=== PATIENT | male | born 1945 | race Caucasian/White ===

== ENCOUNTER 2016-07-17 13:30 | Emergency (ER) | payer MEDICARE, OTHER ==
[2016-07-17 14:41] VITALS: BP 131/63
--- NOTE | 2016-07-17 14:48 | UC ---
Respiratory Complaint HPI - HPI Summary HPI Summary: complaint of cough that started approx 14 days ago had cold sore at the beginning of illness which resolved with acyclovir productive cough with thick brown sputum for the last 8 days recently having more wheezing slight short of breath with exertion complaint of left back pain that started on 07/20- describes as aching shooting pain with movement resting resolves the pain, pain is worse with coughing able to use cpap without difficulty denies sinus pressure , ear pain , headaches denies fever and chills using albuterol inhaler QHS with some relief denies chest pain, dizziness,diaphoresis, nausea, edema - History of Current Complaint Chief Complaint: UCRespiratory Stated Complaint: COUGH,LOW BACK PAIN Time Seen by Provider: 07/17/16 14:42 Hx Obtained From: Patient - Allergies/Home Medications Allergies/Adverse Reactions: Allergies Allergy/AdvReac Type Severity Reaction Status Date / Time No Known Allergies Allergy Verified 07/17/16 14:34 Home Medications: Home Medications Chlorpheniramine Maleate [Chlor-Trimeton] 4 mg PO 07/17/16 [History] PMH/Surg Hx/FS Hx/Imm Hx Previously Healthy: No - agent orange exposure Endocrine History Of: Reports: Diabetes Denies: Thyroid Disease Cardiovascular History Of: Reports: Cardiac Disorders - BYPASS, CARDIAC ABLASION , AORTIC VALVE DEFIBRALATOR/PACER, Hypertension, Pacemaker/ICD - 2012 Respiratory History Of: Reports: Asthma Denies: COPD GI/ History Of: Denies: Ulcer - Surgical History Surgical History: Yes Surgery Procedure, Year, and Place: left knee surgery x2. Quadruple Bypass Aortic Valve Replacement Ablation, 2012, [facility]. Pacemaker/Difibrillator , 2010, [facility]. Deviated Septum Repair, 1987, [facility]. Tonsillectomy as a child - Family History Known Family History: Positive: Cardiac Disease, Hypertension, Diabetes - Social History Occupation: Retired Lives: With Family Alcohol Use: Weekly Alcohol Amount: 4-5 beers a week Substance Use Type: None Smoking Status (MU): Former Smoker Type: Cigarettes Amount Used/How Often: 1 PPD Length of Time of Smoking/Using Tobacco: 36 Years Have You Smoked in the Last Year: No When Did the Patient Quit Smoking/Using Tobacco: ~2006 - Immunization History Most Recent Influenza Vaccination: fall 2015 Most Recent Tetanus Shot: 3 years ago Most Recent Pneumonia Vaccination: December 2013 Review of Systems Constitutional: Negative Skin: Negative Eyes: Negative ENT: Negative Respiratory: Cough Cardiovascular: Negative Gastrointestinal: Negative Genitourinary: Negative Motor: Negative Neurovascular: Negative Musculoskeletal: Negative Neurological: Negative Psychological: Negative All Other Systems Reviewed And Are Negative: Yes Physical Exam Triage Information Reviewed: Yes Appearance: No Pain Distress, Well-Nourished Vital Signs: Initial Vital Signs Temp 98.5 F 07/17/16 14:34 Pulse 75 07/17/16 14:34 Resp 18 07/17/16 14:34 BP 131/63 07/17/16 14:34 Pulse Ox 97 07/17/16 14:34 Vital Signs Reviewed: Yes Eyes: Positive: Conjunctiva Clear ENT: Positive: Pharynx normal, TMs normal. Negative: Nasal congestion, Nasal drainage Neck: Positive: No Lymphadenopathy Respiratory: Positive: Decreased breath sounds - in both bases, Wheezing - throughout all [place] Cardiovascular: Positive: RRR, Pulses Normal, Brisk Capillary Refill Abdomen Description: Positive: Nontender, Soft, Distended Bowel Sounds: Positive: Present Musculoskeletal: Positive: No Edema, Other: - slight paraspinal tenderness in left lumbar area Neurological: Positive: Alert Psychological Exam: Normal Skin Exam: Normal UC Diagnostic Evaluation - Laboratory O2 Sat by Pulse Oximetry: 97 Re-Evaluation - Re-Evaluation First Eval Re-Evaluation Time: 15:23 Change: Improved Comment: less wheezing throughout Respiratory Course/Dx - Course Course Of Treatment: exam completed. will treat for asthma exacerbation d/t wheezing and length of illness. lunsounds improved with duoneb treatment. chest x-ray negative for pneumonia - Differential Dx/Diagnosis Differential Diagnosis/HQI/PQRI: Asthma, CHF, Lower Resp Infection Provider Diagnoses: asthma exacerbation Discharge - Discharge Plan Condition: Stable Disposition: HOME Prescriptions: DOXYcycline CAP(*) [DOXYcycline 100MG CAP(*)] 100 mg PO BID #20 cap predniSONE TAB* [Deltasone TAB*] 50 mg PO DAILY #5 tab Patient Education Materials: Asthma (ED) Referrals: Nino Key MD [Primary Care Provider] - Additional Instructions: Please take antibiotic as directed Use your albuterol inhaler every 4-6 hours when needed for wheezing, shortness of breath or uncontrolled coughing. Increase fluids and rest Take acetaminophen or ibuprofen for fever or pain Please review your discharge instructions. If your symptoms do not improve please call your primary care provider or return to urgent care.
[2016-07-17] MEDS ORDERED: Albuterol/Ipratropium NEB.SOL* Albuterol 2.5 MG/Ipratropium 0.5 MG 3 ML INH ONE (14:55)
--- NOTE | 2016-07-17 15:39 | RAD ---
INDICATION: Cough. COMPARISON: Comparison is made with a prior chest x-ray study from September 06, 2015. TECHNIQUE: Dual-energy PA and lateral views of the chest were obtained. FINDINGS: The patient is status post sternotomy and cardiac valve surgery. There is a dual-chamber transvenous pacemaker present. The heart is mildly enlarged and unchanged from the prior exam. The lungs are clear. No pleural effusion is present. IMPRESSION: POSTSURGICAL CHANGES, NO EVIDENCE FOR ACUTE FINDING.
== END 2016-07-17 15:56 | disposition home or self-care (01) ==
LOC: UCCORT 13:30
DX: J45.901 Unspecified asthma with (acute) exacerbation (principal); M54.5 Low back pain; I25.10 Atherosclerotic heart disease of native coronary artery without angina pectoris; Z95.1 Presence of aortocoronary bypass graft; E11.9 Type 2 diabetes mellitus without complications
CPT/HCPCS: 71020; 99212; A9270-GY; G0463

== ENCOUNTER 2017-04-26 11:29 | Emergency (ER) | payer MEDICARE, OTHER ==
[2017-04-26 13:39] VITALS: BP 139/65
--- NOTE | 2017-04-26 14:21 | UC ---
FLU HPI - HPI Summary HPI Summary: Pt here w/ URI sx x 8 days. Started as rhinorrhea and sneezing and progressed into STAUFFER, general aches, fever, ST, cough. He has been taking acetaminophen daily except for today and no fever. Also using chloriseptic spray for ST daily - this persists. Ears are full and feels he has PND moving into chest. Denies dysphagia, dyspnea, SOB. Has COPD (uses routine inhalers and feels okay today), DM (typicall 110's - 120's today), a. fib (on pradaxa) and h/o cardiac bypass w / bovine valve replacement. Admits he has a few bloody clots every time he blows his nose however this never develops into epistaxis. Home temp is between 68 and 70F and just started using humidification. HAs been drinking water and 7UP as his appetite is low - denies ab pain, N/V/D and still moving bowels/ urinating. Imms are UTD. - History of Current Complaint Chief Complaint: UCGeneralIllness Stated Complaint: SINUSES, ST, COUGH, FEVER Time Seen by Provider: 04/26/17 14:05 Hx Obtained From: Patient Pain Intensity: 4 - Allergy/Home Medications Allergies/Adverse Reactions: Allergies Allergy/AdvReac Type Severity Reaction Status Date / Time No Known Allergies Allergy Verified 04/26/17 13:36 Home Medications: Home Medications Amiodarone TAB* [Cordarone TAB*] 200 mg PO DAILY 04/26/17 [History Confirmed ] Aspirin EC Low Dose* [Ecotrin EC Low Dose 81 MG*] 81 mg PO DAILY 04/26/17 [ History Confirmed 04/26/17] Calcium Carbonate/Vitamin D3 [Calcium 600 + Vit D Tablet] 1 each PO DAILY [History Confirmed 04/26/17] Cyclosporine 0.05% OPHTH (NF) [Restasis 0.05% OPHTH] 1 drop BOTH EYES BID [History Confirmed 04/26/17] Dabigatran CAP(NF) [Pradaxa CAP(NF)] 150 mg PO BID 04/26/17 [History Confirmed 04/26/17] Ferrous Sulfate TAB* 325 mg PO BID 04/26/17 [History Confirmed 04/26/17] Furosemide TAB* [Lasix TAB*] 40 mg PO BID 04/26/17 [History Confirmed 04/26/17] Latanoprost 0.005%* [Xalatan 0.005%*] 1 drop BOTH EYES QPM 04/26/17 [History Confirmed 04/26/17] Losartan TAB* [Cozaar TAB*] 50 mg PO DAILY 04/26/17 [History Confirmed 04/26/17] Magnesium Oxide [Magnesium 400 mg] 1 tab PO DAILY 04/26/17 [History Confirmed ] Mesalamine CAP(NF) [Pentasa(NF)] 1,000 mg PO QID 04/26/17 [History Confirmed ] Metoprolol Tartrate TAB* [Lopressor TAB*] 50 mg PO BID 04/26/17 [History Confirmed 04/26/17] Mometasone 220 MCG MDI * [Asmanex 220 MCG MDI *] 1 puff INH DAILY 04/26/17 [ History Confirmed 04/26/17] Pantoprazole TAB (NF) [Protonix TAB (NF)] 40 mg PO BID 04/26/17 [History Confirmed 04/26/17] Potassium Chlor TAB* [Klor Con ER TAB*] 20 meq PO BID 04/26/17 [History Confirmed 04/26/17] Simvastatin [Zocor 5 MG-] 10 mg PO DAILY 04/26/17 [History Confirmed 04/26/17] glyBURIDE TAB* [Diabeta TAB*] 2.5 mg PO BID 04/26/17 [History Confirmed 04/26/17 ] metFORMIN* [Glucophage 500 MG TAB *] 500 mg PO DAILY 04/26/17 [History Confirmed 04/26/17] PMH/Surg Hx/FS Hx/Imm Hx Previously Healthy: Yes Endocrine History: Diabetes Cardiovascular History: Cardiac Disease, Atrial Fibrillation Respiratory History: COPD - Surgical History Surgical History: Yes Surgery Procedure, Year, and Place: left knee surgery x2. Quadruple Bypass Aortic Valve Replacement Ablation, 2012, [facility]. Pacemaker/Difibrillator , 2010, [facility] Deviated Septum Repair, 1987, [facility]. Tonsillectomy as a child - Family History Known Family History: Positive: Cardiac Disease, Hypertension, Diabetes - Social History Lives: With Family - children and grandchildren Alcohol Use: Occasionally Alcohol Amount: 4-5 beers a week Substance Use Type: None Smoking Status (MU): Former Smoker - not currently Type: Cigarettes Amount Used/How Often: 1 PPD Length of Time of Smoking/Using Tobacco: 36 Years Have You Smoked in the Last Year: No When Did the Patient Quit Smoking/Using Tobacco: ~2006 - Immunization History Most Recent Influenza Vaccination: fall 2015 Most Recent Tetanus Shot: 3 years ago Most Recent Pneumonia Vaccination: December 2013 Review of Systems Constitutional: Fatigue - tired easily but better w/ rest and fluids Skin: Negative Eyes: Negative ENT: Sore Throat, Ear Ache, Nasal Discharge, Sinus Congestion, Sinus Pain/ Tenderness Respiratory: Cough Cardiovascular: Negative Gastrointestinal: Negative Genitourinary: Negative Motor: Negative Neurovascular: Negative Musculoskeletal: Negative Neurological: Headache Psychological: Negative Is Patient Immunocompromised?: Yes - multiple co-morbidities All Other Systems Reviewed And Are Negative: Yes Physical Exam Triage Information Reviewed: Yes Appearance: No Pain Distress, Ill-Appearing - appears mildly fatigued but alert , speaking in full sentences and pleasant, Obese Vital Signs: Initial Vital Signs Temp 98.1 F 04/26/17 13:34 Pulse 71 04/26/17 13:34 Resp 18 04/26/17 13:34 BP 139/65 04/26/17 13:34 Pulse Ox 99 04/26/17 13:34 Vital Signs Reviewed: Yes ENT: Positive: Nasal congestion, Nasal drainage, TMs normal, Sinus tenderness - maxillary, Uvula midline. Negative: Pharyngeal erythema - thick PND, Trismus, Muffled voice, Hoarse voice Neck exam: Normal Neck: Positive: Supple, Nontender, No Lymphadenopathy Respiratory Exam: Normal Respiratory: Positive: Lungs clear, Normal breath sounds, No respiratory distress. Negative: Crackles, Rhonchi, Stridor, Wheezing, Expiration, Inspiration Cardiovascular: Positive: Other: - IRR Abdominal Exam: Normal Abdomen Description: Positive: Nontender, No Organomegaly, Soft Bowel Sounds: Positive: Present Musculoskeletal Exam: Normal Musculoskeletal: Positive: Strength Intact Neurological Exam: Normal Neurological: Positive: Alert, Muscle Tone Normal Psychological Exam: Normal Skin Exam: Normal Skin: Negative: rashes Flu Course/Dx - Course Course Of Treatment: Suspect viral URI however with thick copious PND and co- morbidities, will start anbx. Discussed supportive care as well as danger s/sx of when to return to [facility] or go to ED. Pt agrees w/ plan. - Differential Dx/Diagnosis Provider Diagnoses: Viral URI. Sinus infection Discharge - Discharge Plan Condition: Stable Disposition: HOME Prescriptions: Amoxicillin/Clavulanate TAB* [Augmentin TAB 875*] 875 mg PO BID #20 tab Patient Education Materials: Upper Respiratory Infection (ED), Sinusitis (ED) Referrals: Nino Key MD [Primary Care Provider] - Additional Instructions: Complete antibiotics as directed. Follow-up with PCP in a few days - if worse, return to or go to ED. You may try the following to support your symptoms: Perform nasal wash/netti pot 2 x day with 8 ounces of warm water + 1/4 teaspoon of salt or saline nasal spray as needed Perform throat gargles with warm salt water as needed Drink 60+ ounces of water daily Sleep 8+ hours per night Avoid Dairy and sugar Drink hot herbal/decaf tea with lemon & honey Drink chicken broth Use a humidifier in your house, but especially near bed at night. You may also keep home temperature at 68F or less. Try a facial steam with or without eucalyptus essential oil or Connor's vapor rub for decongestion. Avoid smoke, candles, perfumes/colonge, air fresheners, scented lotions, etc Consider taking Vitamin C 1,000mg every day during illness If you are started on an antibiotics, start taking probiotics in between and after completion of antibiotics (ie. Yogurt and/or capsules of L. acidophilus, L. bifidus, L. casei, etc - make sure to get these from the refrigerated food section as they are live and active cultures)
== END 2017-04-26 14:36 | disposition home or self-care (01) ==
LOC: UCCORT 11:29
DX: J06.9 Acute upper respiratory infection, unspecified (principal); J32.9 Chronic sinusitis, unspecified; J44.9 Chronic obstructive pulmonary disease, unspecified; E11.8 Type 2 diabetes mellitus with unspecified complications; Z79.84 Long term (current) use of oral hypoglycemic drugs; I48.91 Unspecified atrial fibrillation
CPT/HCPCS: 99212; G0463